=== PATIENT | female | born 1975 | race Caucasian/White ===

== ENCOUNTER 2016-04-06 04:11 | Emergency (ER) | payer OTHER, MEDICARE ==
[~2016-04-06] VITALS: Ht 157.5 cm; Wt 68.0 kg
[~2016-04-06 04:11] MED LIST: CLONAZEPAM 1MG T1 MG PO; CLONIDINE 0.2M0.2 MG PO; FENTANYL 550 MCG/EAC TD; FLUOXETINE20 MG PO; OXYCONTIN 10MG10 MG PO; ZOFRAN ODT4 MG PO
[2016-04-06 04:26] LABS: URINE BILIRUBIN - DIPSTICK NEGATIVE (NEG); URINE BLOOD 3+ (NEG)
--- NOTE | 2016-04-06 05:23 | Emergency Room Report ---
History of Present Illness Time Seen by [id number] Presenting Problem in Triage Pt arrived:Walked Presenting Problem:C/O VAGINAL DISCHARGE WHITE IN COLOR. 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 N Clinical Suspician of Infection? N Mental Status: 1 - Regular (Normal Baseline) Sepsis Risk:Low Sepsis Risk Have you (or family members/close friends) recently traveled outside the [place]? N If Yes, where/when: Have you had exposure to infectious disease within the past month? N TB? Other? Specify: Source patient, RN notes reviewed, old records Exam Limitations no limitations Cardiac Chest Pain Chest pain indicative of cardiac No Timing/Duration this evening Severity moderate ALLERGIES Coded Allergies: sulfamethoxazole (From BACTRIM) (Mild, I-RASH 04/06/16) trimethoprim (From BACTRIM) (Mild, I-RASH 04/06/16) Home Medications Reported Medications Fluoxetine Hcl (Fluoxetine 20MG) 40 MG PO DAILY Oxycodone Hcl Sr (Oxycontin 10MG) 10 MG PO Q12H Clonidine Hydrochloride (Clonidine 0.2MG Tab) 0.2 MG PO QHS Fentanyl (Fentanyl 50MCG Patch) 50 MCG TD Q72H History Medical History General CAD? No Angina: No [place]: No Hypertension? No Hyperlipidemia? Yes CHF? No DVT? No PE? No COPD? No Asthma? No Anemia? No GERD? No Gastric ulcers? No GI Bleed? No Hernia? No Thyroid Problems? No CVA? No Seizures? Yes Diabetes? No Renal Insuffiency? No End Stage Renal Disease? No UTI? No Stones? No BPH? No GB Disease: No Nephritic Syndrome? No Asplenia? No Hepatitis? No Sickle Cell Disease? No Arthritis? No Migraines? Yes Cataracts? No Glaucoma? No MRSA? No HIV? No TB? No Anxiety? Yes Depression? Yes Cancer? No More? 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 Respiratory denies cough, denies shortness of breath, denies wheezing Cardiovascular denies chest pain, denies syncope Gastrointestinal denies constipation, denies vomiting Genitourinary see HPI, dysuria, frequency. Musculoskeletal denies neck pain Skin denies rash Psychiatric/Neurological denies anxiety, denies seizure Physical Exam Vital Signs Vital Signs Date Time Temp Pulse Resp B/P Pulse O2 O2 Flow FiO2 Ox Delivery Rate 04/06 422 99.2 62 18 118/58 98 - WBC >12,000 or <4,000 or 10% bands? 2 or more SIRS Criteria Met? B/P:118/58 MAP:78 Creatinine >2.0? UA output<0.5ml/kg/hr for 2 hrs? Platelet count >100,000? Lactate >2.0mmol/1? INR >1.2 or PTT > than 60 sec? Evidence of Organ Dysfunction? Provider documented clinical suspician of infection? N Sepsis Criteria Count: 0 Sepsis Risk: Low Sepsis Risk General Appearance no apparent distress Eye Exam - bilateral eye PERRL, bilateral eye EOMI Ear, Nose, Throat normal ENT inspection Neck supple Respiratory Status No: respiratory distress. 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 No Results/Orders Laboratory Tests 04/06/16 0420: Urine Color YELLOW, Urine Appearance Cloudy, Urine pH 6.0, Ur Specific [place] > = 1.030, Urine Protein 2+ H, Urine Ketones NEGATIVE, Urine Blood 3+ H, Urine Nitrate POSITIVE H, Urine Bilirubin NEGATIVE, Urine Urobilinogen 0.2, Ur Leukocyte Esterase 2+ H, Urine RBC 5-10, Urine WBC 3-5, Urine Bacteria 1+, Urine Mucus 1+, Urine Glucose NEGATIVE Orders Procedure Date/time Status CULTURE, URINE 04/06 419 Active URINALYSIS/COMPLETE 04/06 416 Complete Departure Departure Time of Disposition 520 Disposition DC Home or Self Care(routine) Clinical Impression Primary Impression: UTI (urinary tract infection) Qualifiers: Urinary tract infection type: acute cystitis Hematuria presence: without hematuria Qualified Code: N30.00 - Acute cystitis without hematuria Condition STABLE Patient Instructions DI for Urinary Tract Infection (UTI) Additional Instructions use meds and see pcp and check on urine culture Discharge Counseling Counseled pt/family regarding diagnosis, test results, medications/RX, follow up needs Prescriptions Current Visit Scripts Ciprofloxacin HCl (Cipro 500MG TAB) 500 MG PO BID #14 TAB Phenazopyridine HCl (Pyridium) 200 MG PO TID #15 TAB ED Critical Care Critical Care No at [id number]
--- NOTE | 2016-04-06 05:23 | Emergency Room Report ---
History of Present Illness Time Seen by [id number] Presenting Problem in Triage Pt arrived:Walked Presenting Problem:C/O VAGINAL DISCHARGE WHITE IN COLOR. 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 N Clinical Suspician of Infection? N Mental Status: 1 - Regular (Normal Baseline) Sepsis Risk:Low Sepsis Risk Have you (or family members/close friends) recently traveled outside the [place]? N If Yes, where/when: Have you had exposure to infectious disease within the past month? N TB? Other? Specify: Source patient, RN notes reviewed, old records Exam Limitations no limitations Cardiac Chest Pain Chest pain indicative of cardiac No Timing/Duration this evening Severity moderate ALLERGIES Coded Allergies: sulfamethoxazole (From BACTRIM) (Mild, I-RASH 04/06/16) trimethoprim (From BACTRIM) (Mild, I-RASH 04/06/16) Home Medications Reported Medications Fluoxetine Hcl (Fluoxetine 20MG) 40 MG PO DAILY Oxycodone Hcl Sr (Oxycontin 10MG) 10 MG PO Q12H Clonidine Hydrochloride (Clonidine 0.2MG Tab) 0.2 MG PO QHS Fentanyl (Fentanyl 50MCG Patch) 50 MCG TD Q72H History Medical History General CAD? No Angina: No [place]: No Hypertension? No Hyperlipidemia? Yes CHF? No DVT? No PE? No COPD? No Asthma? No Anemia? No GERD? No Gastric ulcers? No GI Bleed? No Hernia? No Thyroid Problems? No CVA? No Seizures? Yes Diabetes? No Renal Insuffiency? No End Stage Renal Disease? No UTI? No Stones? No BPH? No GB Disease: No Nephritic Syndrome? No Asplenia? No Hepatitis? No Sickle Cell Disease? No Arthritis? No Migraines? Yes Cataracts? No Glaucoma? No MRSA? No HIV? No TB? No Anxiety? Yes Depression? Yes Cancer? No More? 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 Respiratory denies cough, denies shortness of breath, denies wheezing Cardiovascular denies chest pain, denies syncope Gastrointestinal denies constipation, denies vomiting Genitourinary see HPI, dysuria, frequency. Musculoskeletal denies neck pain Skin denies rash Psychiatric/Neurological denies anxiety, denies seizure Physical Exam Vital Signs Vital Signs Date Time Temp Pulse Resp B/P Pulse O2 O2 Flow FiO2 Ox Delivery Rate 04/06 422 99.2 62 18 118/58 98 - WBC >12,000 or <4,000 or 10% bands? 2 or more SIRS Criteria Met? B/P:118/58 MAP:78 Creatinine >2.0? UA output<0.5ml/kg/hr for 2 hrs? Platelet count >100,000? Lactate >2.0mmol/1? INR >1.2 or PTT > than 60 sec? Evidence of Organ Dysfunction? Provider documented clinical suspician of infection? N Sepsis Criteria Count: 0 Sepsis Risk: Low Sepsis Risk General Appearance no apparent distress Eye Exam - bilateral eye PERRL, bilateral eye EOMI Ear, Nose, Throat normal ENT inspection Neck supple Respiratory Status No: respiratory distress. 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 No Results/Orders Laboratory Tests 04/06/16 0420: Urine Color YELLOW, Urine Appearance Cloudy, Urine pH 6.0, Ur Specific [place] > = 1.030, Urine Protein 2+ H, Urine Ketones NEGATIVE, Urine Blood 3+ H, Urine Nitrate POSITIVE H, Urine Bilirubin NEGATIVE, Urine Urobilinogen 0.2, Ur Leukocyte Esterase 2+ H, Urine RBC 5-10, Urine WBC 3-5, Urine Bacteria 1+, Urine Mucus 1+, Urine Glucose NEGATIVE Orders Procedure Date/time Status CULTURE, URINE 04/06 419 Active URINALYSIS/COMPLETE 04/06 416 Complete Departure Departure Time of Disposition 520 Disposition DC Home or Self Care(routine) Clinical Impression Primary Impression: UTI (urinary tract infection) Qualifiers: Urinary tract infection type: acute cystitis Hematuria presence: without hematuria Qualified Code: N30.00 - Acute cystitis without hematuria Condition STABLE Patient Instructions DI for Urinary Tract Infection (UTI) Additional Instructions use meds and see pcp and check on urine culture Discharge Counseling Counseled pt/family regarding diagnosis, test results, medications/RX, follow up needs Prescriptions Current Visit Scripts Ciprofloxacin HCl (Cipro 500MG TAB) 500 MG PO BID #14 TAB Phenazopyridine HCl (Pyridium) 200 MG PO TID #15 TAB ED Critical Care Critical Care No at [id number]
[2016-04-06] MEDS ORDERED: PYRIDIUM200 M2 PO (05:28)
[2016-04-06] MEDS ORDERED: CIPRO 500MG TA500 MG PO (05:28)
[2016-04-06 05:32] VITALS: BP 98/62
[2016-05-22] MEDS ORDERED: MELATONIN1 MG PO (18:19)
[2016-05-22] MEDS ORDERED: VITAMIN D31000 IU PO (18:20)
[2016-05-22] MEDS ORDERED: VALERIAN ROOT100 MG PO (18:20)
[2016-05-22] MEDS ORDERED: PEPCID40 MG PO (19:10)
== END 2016-04-06 05:36 | disposition home or self-care (01) ==
LOC: ER 04:11
PROVIDERS: Emergency Medicine
DX: N30.00 Acute cystitis without hematuria (principal); F41.8 Other specified anxiety disorders

== ENCOUNTER 2016-04-20 22:35 | Emergency (ER) | payer OTHER, MEDICARE ==
[~2016-04-20] VITALS: Ht 157.5 cm; Wt 68.0 kg
[~2016-04-20 22:35] MED LIST changes: +CIPRO 500MG TA500 MG PO; +PYRIDIUM200 M2 PO
[2016-04-20 22:47] LABS: URINE BILIRUBIN - DIPSTICK NEGATIVE (NEG); URINE BLOOD NEGATIVE (NEG)
[2016-04-20] MEDS ORDERED: MINOCYCLINE 10100 MG PO (23:20)
[2016-04-20] MEDS ORDERED: PYRIDIUM200 M2 PO (23:20)
--- NOTE | 2016-04-20 23:25 | Emergency Room Report ---
History of Present Illness Time Seen by [id number] Presenting Problem in Triage Pt arrived:Walked Presenting Problem:REPORTS HAD UTI A COUPLE OF WEEKS AGO. STATES THINK SHE HAS ANOTHER UTI. REPORTS COPOSTOMY YESTERDAY. 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 N Clinical Suspician of Infection? N Mental Status: 1 - Regular (Normal Baseline) Sepsis Risk:Low Sepsis Risk Have you (or family members/close friends) recently traveled outside the [place]? N If Yes, where/when: Have you had exposure to infectious disease within the past month? N TB? Other? 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 No Angina: No [place]: No Hypertension? No Hyperlipidemia? Yes CHF? No DVT? No PE? No COPD? No Asthma? No Anemia? No GERD? No Gastric ulcers? No GI Bleed? No Hernia? No Thyroid Problems? No CVA? No Seizures? Yes Diabetes? No Renal Insuffiency? No End Stage Renal Disease? No UTI? No Stones? No BPH? No GB Disease: No Nephritic Syndrome? No Asplenia? No Hepatitis? No Sickle Cell Disease? No Arthritis? No Migraines? Yes Cataracts? No Glaucoma? No MRSA? No HIV? No TB? No Anxiety? Yes Depression? Yes Cancer? No More? 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 Respiratory denies cough, denies shortness of breath, denies wheezing Cardiovascular denies chest pain Gastrointestinal denies abdominal pain, denies diarrhea, denies vomiting Genitourinary denies: dysuria, frequency, hesitancy, hematuria. Musculoskeletal denies back pain, denies joint pain, denies joint swelling, denies neck pain Skin denies rash Psychiatric/Neurological denies headache, denies seizure Physical Exam Vital Signs Vital Signs Date Time Temp Pulse Resp B/P Pulse O2 O2 Flow FiO2 Ox Delivery Rate 04/20 2241 98.7 47 18 97/56 98 - WBC >12,000 or <4,000 or 10% bands? 2 or more SIRS Criteria Met? B/P:97/56 MAP:69 Creatinine >2.0? UA output<0.5ml/kg/hr for 2 hrs? Platelet count >100,000? Lactate >2.0mmol/1? INR >1.2 or PTT > than 60 sec? Evidence of Organ Dysfunction? Provider documented clinical suspician of infection? N Sepsis Criteria Count: 0 Sepsis Risk: Low Sepsis Risk General Appearance no apparent distress Eye Exam - bilateral eye PERRL, bilateral eye EOMI Ear, Nose, Throat normal ENT inspection Neck supple Respiratory Status No: respiratory distress. 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 No Results/Orders Laboratory Tests 04/20/16 2240: Urine Color YELLOW, Urine Appearance CLEAR, Urine pH 6.5, Ur Specific [place] 1.015, Urine Protein NEGATIVE, Urine Ketones TRACE H, Urine Blood NEGATIVE, Urine Nitrate NEGATIVE, Urine Bilirubin NEGATIVE, Urine Urobilinogen 0.2, Ur Leukocyte Esterase NEGATIVE, Urine WBC OCC, Urine Bacteria 1+, Urine Mucus 1+, Urine Glucose NEGATIVE Orders Procedure Date/time Status URINALYSIS/COMPLETE 04/20 2238 Complete Departure Departure Time of Disposition 2316 Disposition DC Home or Self Care(routine) Clinical Impression Primary Impression: Urethritis, nonspecific Condition STABLE Referrals Lucio RUIZ,Cabrera Carcamo MD,[place] Patient Instructions DI for Urethritis Additional Instructions fluids and see your dr for follow up Discharge Counseling Counseled pt/family regarding diagnosis, test results, medications/RX, follow up needs Prescriptions Current Visit Scripts Minocycline Hcl (Minocycline 100MG. Capsule) 100 MG PO BID #14 CAP Phenazopyridine HCl (Pyridium) 200 MG PO TID #15 TAB ED Critical Care Critical Care No at [id number]
--- NOTE | 2016-04-20 23:25 | Emergency Room Report ---
History of Present Illness Time Seen by [id number] Presenting Problem in Triage Pt arrived:Walked Presenting Problem:REPORTS HAD UTI A COUPLE OF WEEKS AGO. STATES THINK SHE HAS ANOTHER UTI. REPORTS COPOSTOMY YESTERDAY. 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 N Clinical Suspician of Infection? N Mental Status: 1 - Regular (Normal Baseline) Sepsis Risk:Low Sepsis Risk Have you (or family members/close friends) recently traveled outside the [place]? N If Yes, where/when: Have you had exposure to infectious disease within the past month? N TB? Other? 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 No Angina: No [place]: No Hypertension? No Hyperlipidemia? Yes CHF? No DVT? No PE? No COPD? No Asthma? No Anemia? No GERD? No Gastric ulcers? No GI Bleed? No Hernia? No Thyroid Problems? No CVA? No Seizures? Yes Diabetes? No Renal Insuffiency? No End Stage Renal Disease? No UTI? No Stones? No BPH? No GB Disease: No Nephritic Syndrome? No Asplenia? No Hepatitis? No Sickle Cell Disease? No Arthritis? No Migraines? Yes Cataracts? No Glaucoma? No MRSA? No HIV? No TB? No Anxiety? Yes Depression? Yes Cancer? No More? 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 Respiratory denies cough, denies shortness of breath, denies wheezing Cardiovascular denies chest pain Gastrointestinal denies abdominal pain, denies diarrhea, denies vomiting Genitourinary denies: dysuria, frequency, hesitancy, hematuria. Musculoskeletal denies back pain, denies joint pain, denies joint swelling, denies neck pain Skin denies rash Psychiatric/Neurological denies headache, denies seizure Physical Exam Vital Signs Vital Signs Date Time Temp Pulse Resp B/P Pulse O2 O2 Flow FiO2 Ox Delivery Rate 04/20 2241 98.7 47 18 97/56 98 - WBC >12,000 or <4,000 or 10% bands? 2 or more SIRS Criteria Met? B/P:97/56 MAP:69 Creatinine >2.0? UA output<0.5ml/kg/hr for 2 hrs? Platelet count >100,000? Lactate >2.0mmol/1? INR >1.2 or PTT > than 60 sec? Evidence of Organ Dysfunction? Provider documented clinical suspician of infection? N Sepsis Criteria Count: 0 Sepsis Risk: Low Sepsis Risk General Appearance no apparent distress Eye Exam - bilateral eye PERRL, bilateral eye EOMI Ear, Nose, Throat normal ENT inspection Neck supple Respiratory Status No: respiratory distress. 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 No Results/Orders Laboratory Tests 04/20/16 2240: Urine Color YELLOW, Urine Appearance CLEAR, Urine pH 6.5, Ur Specific [place] 1.015, Urine Protein NEGATIVE, Urine Ketones TRACE H, Urine Blood NEGATIVE, Urine Nitrate NEGATIVE, Urine Bilirubin NEGATIVE, Urine Urobilinogen 0.2, Ur Leukocyte Esterase NEGATIVE, Urine WBC OCC, Urine Bacteria 1+, Urine Mucus 1+, Urine Glucose NEGATIVE Orders Procedure Date/time Status URINALYSIS/COMPLETE 04/20 2238 Complete Departure Departure Time of Disposition 2316 Disposition DC Home or Self Care(routine) Clinical Impression Primary Impression: Urethritis, nonspecific Condition STABLE Referrals Lucio RUIZ,Cbarera Carcamo MD,[place] Patient Instructions DI for Urethritis Additional Instructions fluids and see your dr for follow up Discharge Counseling Counseled pt/family regarding diagnosis, test results, medications/RX, follow up needs Prescriptions Current Visit Scripts Minocycline Hcl (Minocycline 100MG. Capsule) 100 MG PO BID #14 CAP Phenazopyridine HCl (Pyridium) 200 MG PO TID #15 TAB ED Critical Care Critical Care No at [id number]
[2016-04-20 23:31] VITALS: BP 89/63
[2016-05-22] MEDS ORDERED: MELATONIN1 MG PO (18:19)
[2016-05-22] MEDS ORDERED: VITAMIN D31000 IU PO (18:20)
[2016-05-22] MEDS ORDERED: VALERIAN ROOT100 MG PO (18:20)
[2016-05-22] MEDS ORDERED: PEPCID40 MG PO (19:10)
== END 2016-04-20 23:33 | disposition home or self-care (01) ==
LOC: ER 22:35
PROVIDERS: Emergency Medicine
DX: N34.2 Other urethritis (principal)

== ENCOUNTER → 2016-08-31 | Outpatient (CLI) | payer OTHER, MEDICARE ==
[~2016-08-31] MED LIST changes: +MELATONIN1 MG PO; +MINOCYCLINE 10100 MG PO; +PEPCID40 MG PO; +VALERIAN ROOT100 MG PO; +VITAMIN D31000 IU PO
--- NOTE | 2016-08-31 10:23 | RADIOLOGY REPORT PS360 ---
US ABD(COMPLETE-MULTI ORGANS HISTORY: Elevated liver enzymes ABNORMAL LIVER ENZYMES ORDERING PHYSICIAN: BENOIT DAILEY PATIENT AGE: 40 years COMPARISON: None FINDINGS: PANCREAS:Unremarkable. No obvious mass or abnormal fluid collection. No ductal dilatation LIVER:No focal liver lesions demonstrated. Homogeneous echogenicity. No intrahepatic biliary ductal dilatation evident RIGHT KIDNEY:Unremarkable. Normal size and echogenicity. No hydronephrosis LEFT KIDNEY:Unremarkable. No hydronephrosis. Normal size and echogenicity. GALLBLADDER:Status post cholecystectomy. Common bile duct is normal at 3 mm. AORTA:No evidence of aneurysmal dilatation. There is some atherosclerotic plaque noted within the aorta SPLEEN:Unremarkable. Normal size and echogenicity ASCITES:None demonstrated. IMPRESSION: 1. Status post cholecystectomy 2. Atheromatous plaque noted within a nondilated abdominal aorta. 3. Otherwise negative abdominal ultrasound
== END ==
LOC: RAD 08:43
DX: R79.89 Other specified abnormal findings of blood chemistry (principal)